=== PATIENT | male | born 1970 | race African-American/Black ===

== ENCOUNTER 2017-02-16 15:50 | Inpatient (IN) | payer MEDICAID, OTHER ==
[~2017-02-16] VITALS: Ht 175.3 cm; Wt 104.5 kg
[2017-02-16 16:49] LABS: Basophils # (auto) 0 uL; Basophils % (auto) 0.5 % (0.0-2.0); DEFINITIVE VIEW TRANSMISSION; Eosinophils # (auto) 0.1 uL; Eosinophils % (auto) 1.1 % (0.0-7.0); Hemoglobin 18.1 g/dL (13.5-17.5); Lymphocytes # (auto) 0.9 uL; Lymphocytes % (auto) 14.2 % (10.0-50.0); Mean Corpuscular Hemoglobin 28.5 pg (28.0-32.0); Mean Corpuscular Volume 89.3 fL (80.0-100.0); Mean Platelet Volume 9.5 fL (7.4-10.4); Monocytes # (auto) 0.4 uL; Monocytes % (auto) 5.5 % (0.0-12.0); Neutrophils # (auto) 5.1 uL; Neutrophils % (auto) 78.7 % (37.0-80.0); Platelet Count (auto) 219 10^3/uL (140-450); Red Cell Distribution Width 15.9 % (11.6-16.0); White Blood Cell 6.4 10^3/uL (4.4-10.8)
[2017-02-16 16:52] LABS: Hematocrit 56.7 % (41.0-53.0)
[2017-02-16 17:08] LABS: Albumin 3.6 g/dL (3.4-5.0); BUN/Creatinine Ratio 13.3; Bilirubin, Total 1.1 mg/dL (0.2-1.0); Calcium 9.6 mg/dL (8.5-10.1); Potassium 4.1 mmol/L (3.5-5.1); Total Protein 9.1 g/dL (6.4-8.2)
[2017-02-16 17:15] LABS: B-Type Natriuretic Peptide 621.84 pg/mL (0-100); Temperature: 23.1 C (20.0-25.0)
[2017-02-16] MEDS ORDERED: ONDANSETRON HCL 4 MG/2 ML VIAL IV ONE ×2 (17:30→20:30)
[2017-02-16] MEDS ORDERED: MORPHINE SULF INJ 2 MG/ML SYRINGE 1ML IV ONE ×2 (17:30→20:30)
[2017-02-16 20:44] LABS: B-Type Natriuretic Peptide 680.35 pg/mL (0-100); Temperature: 22.2 C (20.0-25.0)
[2017-02-16] MEDS ORDERED: FAMOTIDINE 20 MG TAB PO SCH (22:00)
[2017-02-16] MEDS: ACCU-CHEK COMFORT CURVE STRIP VI SCH (22:00)
[2017-02-16] MEDS ORDERED: ASCORBIC ACID 500 MG TAB PO SCH (22:00)
[2017-02-16] MEDS ORDERED: MORPHINE SULF INJ 2 MG/ML SYRINGE 1ML IV PRN (22:00)
[2017-02-16] MEDS ORDERED: ONDANSETRON HCL 4 MG/2 ML VIAL IV PRN (22:00)
[2017-02-16] MEDS ORDERED: InsuLIN REG 1unit/0.01ml Soln (100units/ml) SC SCH (22:00)
[2017-02-16] MEDS ORDERED: DEXTROSE (50%) 50ML SYRG IV PRN (22:00)
[2017-02-16] MEDS ORDERED: ACETAMINOPHEN 325 MG TAB PO PRN (22:00)
[2017-02-16] MEDS ORDERED: ASPirin 81 mg TAB PO ONE (22:00)
[2017-02-16 23:24] VITALS: BP 105/69
[2017-02-17] MEDS ORDERED: ASPirin 81 mg TAB ONE (00:01)
[2017-02-17] MEDS ORDERED: ASCORBIC ACID 500 MG TAB ONE (00:01)
[2017-02-17] MEDS ORDERED: FAMOTIDINE 20 MG TAB ONE (00:02)
[2017-02-17] MEDS ORDERED: MORPHINE SULF INJ 2 MG/ML SYRINGE 1ML ONE (00:39)
[2017-02-17] MEDS ORDERED: ONDANSETRON HCL 4 MG/2 ML VIAL ONE (00:40)
[2017-02-17 05:30] VITALS: BP 122/89
[2017-02-17 05:52] LABS: Basophils # (auto) 0.1 uL; Basophils % (auto) 0.9 % (0.0-2.0); DEFINITIVE VIEW TRANSMISSION; Eosinophils # (auto) 0.1 uL; Eosinophils % (auto) 1.5 % (0.0-7.0); Hematocrit 55.7 % (41.0-53.0); Hemoglobin 17.6 g/dL (13.5-17.5); Lymphocytes # (auto) 1.6 uL; Lymphocytes % (auto) 22.1 % (10.0-50.0); Mean Corpuscular Hemoglobin 28.3 pg (28.0-32.0); Mean Corpuscular Hgb Conc. 31.6 g/dL (32.0-36.0); Mean Corpuscular Volume 89.7 fL (80.0-100.0); Mean Platelet Volume 9.6 fL (7.4-10.4); Monocytes # (auto) 0.9 uL; Monocytes % (auto) 13.1 % (0.0-12.0); Neutrophils # (auto) 4.4 uL; Neutrophils % (auto) 62.4 % (37.0-80.0); Platelet Count (auto) 220 10^3/uL (140-450); White Blood Cell 7.1 10^3/uL (4.4-10.8)
[2017-02-17 06:11] LABS: Albumin 3.1 g/dL (3.4-5.0); BUN/Creatinine Ratio 11.1; Bilirubin, Total 1.2 mg/dL (0.2-1.0); Calcium 9.4 mg/dL (8.5-10.1); Potassium 3.8 mmol/L (3.5-5.1); Total Protein 8.2 g/dL (6.4-8.2)
[2017-02-17] MEDS ORDERED: InsuLIN REG 1unit/0.01ml Soln (100units/ml) ONE (06:29)
[2017-02-17] MEDS ORDERED: DEXTROSE (50%) 50ML SYRG IV PRN (07:00)
[2017-02-17] MEDS ORDERED: ONDANSETRON HCL 4 MG/2 ML VIAL IV PRN (07:00)
[2017-02-17] MEDS ORDERED: ACETAMINOPHEN 325 MG TAB PO PRN (07:00)
[2017-02-17] MEDS ORDERED: ACCU-CHEK COMFORT CURVE STRIP VI SCH (07:00)
[2017-02-17] MEDS ORDERED: InsuLIN REG 1unit/0.01ml Soln (100units/ml) SC SCH (07:00)
[2017-02-17] MEDS ORDERED: MORPHINE SULF INJ 2 MG/ML SYRINGE 1ML IV PRN (07:00)
[2017-02-17] MEDS: ACCU-CHEK COMFORT CURVE STRIP VI SCH (07:21)
[2017-02-17 09:00] VITALS: BP 119/85
[2017-02-17] MEDS ORDERED: ASPirin 81 mg TAB PO ONE ×2 (10:00)
[2017-02-17] MEDS ORDERED: MULTIPLE VITAMIN TAB PO SCH ×2 (10:00)
[2017-02-17] MEDS ORDERED: ASCORBIC ACID 500 MG TAB PO SCH (10:00)
[2017-02-17] MEDS ORDERED: FAMOTIDINE 20 MG TAB PO SCH (10:00)
[2017-02-17] MEDS ORDERED: CLOPIDOGREL BISULFATE 75 MG TAB PO ONE ×2 (10:00)
[2017-02-17] MEDS ORDERED: ZINC SULFATE 220 MG CAP PO SCH ×2 (10:00)
[2017-02-17] MEDS ORDERED: ENOXAPARIN SOD 40 MG/0.4 ML SYRINGE SC SCH ×2 (10:00)
[2017-02-17] MEDS ORDERED: CLOP75TA28 PO (12:16)
[2017-02-17] MEDS ORDERED: ASPI-231 PO (12:16)
[2017-02-17] MEDS ORDERED: METO25TA5 PO (12:16)
[2017-02-17] MEDS ORDERED: SIMV-13 PO (12:16)
[2017-02-17] MEDS ORDERED: LISI2.5T47 PO (12:16)
[2017-02-17] MEDS ORDERED: NITR400A5 TL (12:16)
[2017-02-17 12:51] VITALS: BP 119/85
[2017-02-17 13:00] VITALS: BP 121/83
[2017-02-17 22:00] VITALS: BP 190/113
== END 2017-02-17 14:19 | disposition hospice, inpatient (51) | DRG 190 ==
LOC: EDBD 15:50 → EDUNIT# 15:50 → ER 15:50 → TELE 15:51 → SUATTDRO 19:47 → ER 21:50 → TELE-CENTR 21:50
PROVIDERS: ADMIT Nurse Practitioner Acute Care; ATTEND Nurse Practitioner Acute Care
DX: I21.4 Non-ST elevation (NSTEMI) myocardial infarction (principal); I50.43 Acute on chronic combined systolic (congestive) and diastolic (congestive) heart failure; I42.9 Cardiomyopathy, unspecified; K74.60 Unspecified cirrhosis of liver; D75.1 Secondary polycythemia; K72.90 Hepatic failure, unspecified without coma; I25.110 Atherosclerotic heart disease of native coronary artery with unstable angina pectoris; I11.0 Hypertensive heart disease with heart failure; F32.9 Major depressive disorder, single episode, unspecified; F17.210 Nicotine dependence, cigarettes, uncomplicated; F41.9 Anxiety disorder, unspecified; Z82.49 Family history of ischemic heart disease and other diseases of the circulatory system; I25.2 Old myocardial infarction; Z98.61 Coronary angioplasty status
CPT/HCPCS: 36415; 71020; 80053; 82962; 83036; 83735; 83880; 84443; 84484; 85025; 93005; 93306; 96374; 96375; 96376; 97001; J1815; J2405

== ENCOUNTER 2020-03-04 15:33 | Emergency (ER) | payer MEDICAID ==
[~2020-03-04] VITALS: Ht 182.9 cm; Wt 97.5 kg
[~2020-03-04 15:33] MED LIST: ASPI-231 PO; CLOP75TA28 PO; LISI2.5T47 PO; METO25TA5 PO; NITR400A5 TL; SIMV-13 PO
[2020-03-04] MEDS ORDERED: SODIUM CHLORIDE 0.9% 1,000 ML IV ONE (15:43)
[2020-03-04 16:17] LABS: Basophils # (auto) 0.1 10 ^3/uL (0-0.2); Basophils % (auto) 0.5 % (0.0-2.0); Eosinophils # (auto) 0.7 10 ^3/uL (0-0.8); Eosinophils % (auto) 6.6 % (0.0-7.0); Hematocrit 39.8 % (41.0-53.0); Hemoglobin 12.9 g/dL (13.5-17.5); Lymphocytes # (auto) 2.3 10 ^3/uL (0.4-5.4); Lymphocytes % (auto) 22.8 % (10.0-50.0); Mean Corpuscular Hemoglobin 28.5 pg (28.0-32.0); Mean Corpuscular Hgb Conc. 32.5 g/dL (32.0-36.0); Mean Corpuscular Volume 87.7 fL (80.0-100.0); Monocytes # (auto) 0.9 10 ^3/uL (0-1.3); Monocytes % (auto) 8.6 % (0.0-12.0); Neutrophils # (auto) 6.1 10 ^3/uL (1.6-8.6); Neutrophils % (auto) 61.5 % (37.0-80.0); Nucleated Red Blood Cells % 0.1 %; Platelet Count (auto) 336 10^3/uL (140-450); Red Blood Cells 4.54 10^6/uL (4.5-5.90); Red Cell Distribution Width 13.8 % (11.8-14.3); White Blood Cell 9.9 10^3/uL (4.4-10.8)
[2020-03-04 16:38] LABS: Albumin 2.9 g/dL (3.4-5.0); Anion Gap 6 (5-15); Calcium 8.8 mg/dL (8.5-10.1); Carbon Dioxide 28 mmol/L (21-32); Chloride 104 mmol/L (98-107); Glucose 88 mg/dL (74-106); Potassium 3.9 mmol/L (3.5-5.1); Sodium 138 mmol/L (136-145)
[2020-03-04 16:44] LABS: Alanine Aminotransferase 11 U/L (16-61); Alkaline Phosphatase 84 U/L (45-117); Aspartate Aminotransferase 10 U/L (15-37); BUN/Creatinine Ratio 8.1; Bilirubin, Total 0.3 mg/dL (0.2-1.0); Blood Urea Nitrogen 6 mg/dL (7-18); GFR African American 143 mL/min; GFR Non-African American 119 mL/min; Total Protein 8.2 g/dL (6.4-8.2)
[2020-03-04 17:09] LABS: Urine Bacteria NONE SEEN /hpf (None Seen); Urine Blood Negative /uL (Negative); Urine Mucus FEW (None Seen); Urine WBC 3 /hpf (0 - 3)
[2020-03-04 18:14] VITALS: BP 116/73
== END 2020-03-04 17:32 | disposition home or self-care (01) ==
LOC: ER 15:33 → EDBD 15:33 → ER 17:32
DX: I11.0 Hypertensive heart disease with heart failure (principal); I50.9 Heart failure, unspecified; I25.10 Atherosclerotic heart disease of native coronary artery without angina pectoris; I25.2 Old myocardial infarction; F17.210 Nicotine dependence, cigarettes, uncomplicated; Z79.82 Long term (current) use of aspirin; Z79.01 Long term (current) use of anticoagulants; Z79.899 Other long term (current) drug therapy
CPT/HCPCS: 36415; 70450; 71045; 80053; 81001; 83880; 84484; 85025; 93005